=== PATIENT | female | born 1955 | race Caucasian/White ===

== ENCOUNTER 2022-05-13 12:30 | Outpatient (RCR) | payer MEDICARE, MEDICAID, SELFPAY ==
--- NOTE | 2022-02-15 11:59 | PTOPEVAL ---
PHYSICAL THERAPY INITIAL EVALUATION. Thank you for referring Roselia Hendricks to [facility].? The patient is scheduled to be seen for therapy? 2x/week for 4 weeks. Please review, sign, date and return this plan of care DEVIN. I agree with and certify that the following plan of care is medically necessary. Referring Physician Date Attending Provider: Marija Brito, CORRUGATOR HELPER *PT Outpatient Evaluation Start: 02/15/22 Evaluation Information Diagnosis Gait abnormalities Onset chronic Subjective Information Pt reports she cannot hardly Query Text:As Reported By Patient/ stand, sit, or walk. She Family reports arthritis in both knees, both ankles, both hands , and in her low back. She reports most of her issues are in both knees and sciatic pain when walking. She reports she can sit for 30 mins, she can stand for 15 mins. She reports balance issues stating she has no balance in my legs , she states her bad balance causes her legs to shake. Pt reports no falls in the last 6 months. She reports she sits in a chair and swings her legs for exercise. Prior Level of Function Home Type House Environmental Barriers Ramp Living Situation With Friend Pain Assessment Self Report Pain Assessment Lower Back Reported Pain Level 2 Pain Radiation Right Leg Lowest Pain Intensity 0 Greatest Pain Intensity 7 Lower Extremity Range of Motion General Lower Extremity Range of Motion WFL/Left,WFL/Right Lower Extremity Muscle Strength Testing Gross Lower Extremity Strength susana hip flexion 4-/5 susana knee flexion/extension 4-/5 susana hip abduction 2/5 - unable to hold test position pt able to perform 1 glute bridge unable to perform a double leg heel raise increase muscle shaking with increased fatigue Muscle Length Testing Piriformis w/Hip Flexion >90 Degrees (L) Moderate Tightness,(R) Severe Tightness Left Hamstring Length -60 Right Hamstring Length -60 Posture Standing Position Knee Posture (L) Genu Varus,(R) Genu Varus Palpation Assessment Palpation
--- NOTE | 2022-02-15 12:00 | OTOPEVAL ---
OCCUPATIONAL THERAPY INITIAL EVALUATION REPORT 02/15/22 Thank you for referring Roselia Hendricks to [facility].? The patient is scheduled to be seen for therapy? 2x/week for 3 weeks. Please review, sign, date and return this plan of care DEVIN. I agree with and certify that the following plan of care is medically necessary. Referring Physician Date Referring Provider: Marija Brito, CLAMMER *OT Outpatient Evaluation Start: 02/15/22 10:44 Therapy Assessment Status Assessment Status Assessment Status Evaluation Outpatient Past Medical History Past Medical History Source of Past Medical History Patient Neurological History Hx Other Neurological Disorders Yes: polyneuropathy Cardiovascular History Hx Cardiac Disorders No Significant History Respiratory History Hx Respiratory Disorders No Significant History Musculoskeletal History Hx Arthritis Yes: back, hips, knees, hands Hx Fractures Yes: R wrist Hx Orthopedic Surgery Yes: achilles repair, bunion removal Evaluation Information Problem Diagnosis Polyneuropathy Subjective Information Patient reports neuropathy and Query Text:As Reported By Patient/ 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 She Family states her hands lock up with her fingers crossed and it's very painful. States she has difficulties with washing dishes, writing, and coloring. She also reports that she has carpal tunnel syndrome bilaterally. States she had a nerve conduction study of her UEs 10-12 years ago. Prior Level of Function Activity Level (Last 3 Months) Hand Dominance Right Activity of Daily Living Ability Independent Cooking Yes Cleaning Yes Laundry No Shopping Yes Driving No Home Setting Home Type House Environmental Barriers Ramp Living Situation With Friend Mobility Assistive Devices (Used Last 3 Cane, Large Based Quad Months) Bathroom Environment Tub/Shower, Curtain Bathing Equipment Grab Bars,Tub Seat With Back Comments Additional Prior Level of Function pt. lives with a roommate. She Comments is independent with ADLs, light meal prep, light cleaning, and she goes grocery shopping with her roommate. Roommate does the laundry. She does not drive
--- NOTE | 2022-03-10 11:50 | OTOPDC ---
Evaluation Information Assessment Status Discharge Diagnosis Polyneuropathy Subjective Information Patient has been working with outpatient hand therapy x3 weeks. She notes progress with functional hand use and less hand pain. She is having less sharp, shooting pains in the palms. She states that she no longer has daily episodes of her hands locking up - she states this hasn't happened in weeks. 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 Reported Pain Level Pain Score 2,0: Self Report Additional Pain Score Comments Patient reports having less overall pain in the hands and wrists. She continues to have pain up to 5/10 in the left wrist that she has to stop, shake her hand out, and rest. She states that overall these kinds of pains are less frequent. Assessment OT Clinical Summary Roselia presents today for OT re-evaluation after 5 sessions focused on bilateral hand pain. At this time her pain has reduced and she is no longer having sharp, shooting pains or hand cramping with hand use. She is currently independent with [facility] for ROM and gentle strengthening. No further skilled OT indicated at this time. Plan of Care OT Services Indicated No
--- NOTE | 2022-03-22 12:48 | PTOPPROG ---
Assessment and note entered by Jasmine Quinn, PT, DPT Evaluation Information Assessment Status Progress Diagnosis Gait abnormalities Onset chronic Subjective Information Pt states she feels able to the same as when she started therapy. She states her knees are her biggest limitations. She reports good compliance with her HEP. She reports R sided low back pain this date, and states she still gets thigh cramps. Pt reports 45% improvement in overall symptoms. Assessment PT Clinical Summary Rosemarie presents to therapy today for her progress report following 7 visits of therapy to treat her gait deviations d/t weakness. Today she demonstrates improvements during her 2min walk test, 5xSTS, and TUG but still requires increased time to complete these compared to normative values. Her strength is improving but this progress is slow. Pt is currently limited by her knee and low back pain making exercises difficulty , she also reports being anxious and worries about not doing good with therapy. Continuation of skilled physical therapy services are indicated to continue working on strength, balance, mobility, to manage pain, and to promote unlimited functional mobility. Plan of Care Interventions Gait Training,Manual Therapy,Neuro Re-education, Patient/Caregiver Educati,Therapeutic Activities, Therapeutic Exercise PT Services Indicated Yes Treatment Frequency and 2x/wk for 4 wks Duration These treatments will address the objective and functional deficits as defined above. The patient will be advanced safely and appropriately in order for the patient to progress towards his/her prior level of function. Additional exercises will be introduced and as well as a comprehensive home exercise program upon discharge, if needed, ?to ensure carryover of functional gains achieved in the clinic. This treatment plan has been reviewed and agreement upon by the patient.
--- NOTE | 2022-04-19 16:31 | PTOPPROG ---
Assessment and note entered by Jasmine Quinn, PT, DPT Evaluation Information Assessment Status Progress Diagnosis Gait abnormalities Onset chronic Subjective Information Pt states overall she is improving. She states her legs still shake sometimes when she is standing for a prolonged period of time. Pt states she can stand no longer than 5 minutes prior to needing to sit. Assessment PT Clinical Summary Roselia presents to therapy today for her progress report following 14 visits of skilled therapy. Today she demonstrates slow progress with her strength. She demonstrates intermittent progress with her TUG score, 5xSTS, and 2 min walk distance . She continues to require increased time to complete the standardized tests, placing her at an increased risk for falls. She also continues to demonstrates LE shaking with resistance training. Continuation of skilled therapy services are indicated to improve strength, improve balance, minimize fall risk, and to promote unlimited functional mobility. Plan of Care Interventions Gait Training,Manual Therapy,Neuro Re-education, Patient/Caregiver Educati,Therapeutic Activities, Therapeutic Exercise PT Services Indicated Yes Treatment Frequency and 2x/wk for 4 wks Duration These treatments will address the objective and functional deficits as defined above. The patient will be advanced safely and appropriately in order for the patient to progress towards his/her prior level of function. Additional exercises will be introduced and as well as a comprehensive home exercise program upon discharge, if needed, ?to ensure carryover of functional gains achieved in the clinic. This treatment plan has been reviewed and agreement upon by the patient.
--- NOTE | 2022-05-04 14:20 | PCPTNOTE ---
Patient called & cancelled scheduled appointment this date due to no transportation.
== END 2022-05-16 23:59 | disposition home or self-care (01) ==
LOC: ANHPT 12:30
PROVIDERS: PCP Nurse Practitioner Family; Referring Provider Nurse Practitioner Family; Visit Provider Nurse Practitioner Family
DX: G62.9 Polyneuropathy, unspecified (principal); M62.81 Muscle weakness (generalized); Z74.09 Other reduced mobility
CPT/HCPCS: 97018; 97110; 97112; 97140; 97162; 97165

== ENCOUNTER 2022-05-18 09:56 | Outpatient (RCR) | payer MEDICARE, MEDICAID, SELFPAY ==
--- NOTE | 2022-05-18 16:48 | PTOPDC ---
Assessment and note entered by Carlos Flores, PT Evaluation Information Assessment Status Discharge Diagnosis abnormal gait due to muscle weakness/neuropathy Onset chronic Subjective Information The patient reports she has been dealing with shakiness and spasms in her muscles since a surgery on the L foot 3 years ago where she did not walk or barely walked for 5 months. She reports being consistent doing her exercises at home as much as she can. Reported Pain Level Pain Score 6: Self Report Assessment PT Clinical Summary Roselia has been coming to physical therapy since February 14, 2022. She has made improvements in her TUG score, 2 min walk test, self reports improvement, ERICA hamstring in 90/90, hip strength, and 5 times sit to stand test. She has not met any of her goals besides hamstring length. At this time physical therapist thinks that patient's self reported bone on bone of the knees especially the RLE are causing the patient to plateau and would recommend that the patient see an orthopedic surgeon. She reports she saw one in 1997 and that at the time she didn't need to do it. Physical therapist states that was 24 years ago and there has probably been even worse damage to the knee joints since then. Patient reports she will contact Dr. Ring. Plan of Care PT Services Indicated No Treatment Frequency and discharge Duration
== END 2022-05-19 08:17 | disposition home or self-care (01) ==
LOC: ANHPT 09:56
PROVIDERS: PCP Nurse Practitioner Family; Visit Provider Nurse Practitioner Family
DX: G62.9 Polyneuropathy, unspecified (principal); M62.81 Muscle weakness (generalized); Z74.09 Other reduced mobility
CPT/HCPCS: 97110

== ENCOUNTER 2022-11-12 13:53 | Emergency (ER) | payer MEDICARE, MEDICAID, SELFPAY ==
--- NOTE | ~2022-11-12 | XR_ITS ---
EXAM: XR elbow RT min 3V DATE: 11/12/2022 16:22 HISTORY: elbow pain . COMPARISON: None available. FINDINGS: Positioning limited by pain and the presence of splint material which prevented full elbow flexion. Normal mineralization. No fracture or dislocation. No lytic or blastic lesion. Mild degenera tive change at the elbow joint. Epicondylar enthesopathy. No erosion or periosteal change. Soft tissu es within normal limits. IMPRESSION: No definite fracture or dislocation. Limited lateral view, which can obscure small joint effusions that can accompany occult radial head fractures. Reviewed, dictated and finalized at location K. IMPRESSION: No definite fracture or dislocation. Limited lateral view, which ca n obscure small joint effusions that can accompany occult radial head fractures .
--- NOTE | ~2022-11-12 | XR_ITS ---
XR forearm RT 2V, XR wrist RT min 3V 11/12/2022 14:12 Indication: Status post fall. Right arm pain. Procedure: 2 views right forearm and 3 views right wrist Comparison: No prior studies for comparison. Findings: There is a comminuted distal radial metaphyseal fracture with approximately 3 mm dorsal dis placement. No significant angulation. There is a nondisplaced ulnar styloid fracture. 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 Osteopenia. Impression: 1: Comminuted distal radial metaphyseal fracture with 3 mm dorsal displacement. 2: Nondisplaced ulnar styloid fracture. Reviewed, dictated and finalized at location A. Impression: 1: Comminuted distal radial metaphyseal fracture with 3 mm dorsal displacement. 2: Nondisplaced ulnar styloid fracture. Impression: 1: Comminuted distal radial metaphyseal fracture with 3 mm dorsal displacement. 2: Nondisplaced ulnar styloid fracture.
[2022-11-12 13:55] VITALS: BP 140/72; PULSE 86; RESP 18; TEMP 37.2; O2SAT 100
[2022-11-12 16:12] VITALS: BP 145/84; PULSE 78; RESP 18; O2SAT 100
--- NOTE | 2022-11-12 16:19 | ED.FALL ---
HPI - Fall General Chief Complaint: Fall Stated Complaint: Fall, Right Wrist Pain Time Seen by Provider: 11/12/22 16:01 History of Present Illness HPI Narrative: 67-year-old female presenting to the emergency department for evaluation of right wrist pain after having a ground-level fall. Patient states she was attempting to move a package when she tripped fell backwards and landed on her right wrist. Patient denies striking her head denies any loss of consciousness. Patient reports when she was younger she did have an injury to that same wrist. Patient was complaining of pain in the right wrist and pain in the right elbow. Patient does describe arthritic pain of the lower legs but denies any other acute injuries Related Data Allergies Allergy/AdvReac Type Severity Reaction Status Date / Time lactose Allergy Unknown Nausea and Verified 11/12/22 17:27 Vomiting latex Allergy Unknown Unknown Verified 11/12/22 17:27 poison toño extract Allergy Unknown Rash Verified 11/12/22 17:27 tomato Allergy Unknown Hives Verified 11/12/22 17:27 Review of Systems Review of Systems: All systems reviewed & are unremarkable except as noted in HPI and below PMFSH Family History Family History (Updated 09/26/18 @ 11:18 by DOCTOR UNKNOWN) Other Diabetes mellitus Family history of arthritis Family history of malignant neoplasm of bone Malignant neoplasm of prostate Social History Social History Smoking status: Former smoker Smoking end date: 07/03/72 Alcohol intake: never Exam Narrative: APPEARANCE: Well appearing, no pain, no distress, well-nourished. HEAD: normocephalic, atraumatic. EYES: PERRLA/EOMI, conjunctivae clear. NOSE: Normal no drainage NECK: Supple. No adenopathy, no masses. RESPIRATORY: Airway patent, respirations nonlabored. Clear to auscultation bilaterally, no rales, rhonchi, wheezing. CARDIOVASCULAR: Regular rate and rhythm without murmurs rubs or gallops. ABDOMINAL: Soft, nontender, nondistended, normal bowel sounds MUSCULOSKELETAL: Tenderness to right wrist, neurovascular intact. Tenderness to right elbow NEURO: Alert. Cranial nerves II through XII intact. SKIN: Warm, dry. Normal Color Course Course Emergency Course: 67-year-old female presented to the ED for evaluation of right wrist pain. X-rays did show a comminuted distal radius fracture. X-ray of the elbow showed no significant fracture. Patient was placed in a volar splint and also provided a pouch sling for comfort. Patient was provided follow-up with orthopedics. Patient was neurovascularly intact. No significant deformity requiring reduction in the emergency department. Patient and family were updated on the plan for splinting in the emergency department medications for pain control and the importance having close follow-up with orthopedics as outpatient. Patient and family were also updated on reasons to return to the emergency department. All question concerns were addressed. Vital Signs Vital signs: Vital Signs Temperature 98.9 F 11/12/22 13:55 Pulse Rate 86 11/12/22 13:55 Respiratory Rate 18 11/12/22 13:55 Blood Pressure 140/72 11/12/22 13:55 Pulse Oximetry 100 11/12/22 13:55 Oxygen Delivery Room Air 11/12/22 13:55 Temperature 98.9 F 11/12/22 13:55 Pulse Rate 72 11/12/22 18:01 Respiratory Rate 20 11/12/22 18:01 Blood Pressure 137/77 11/12/22 18:01 Pulse Oximetry 99 11/12/22 18:01 Oxygen Delivery Room Air 11/12/22 13:55 MDM - Fall Differential Diagnosis Differential diagnosis: Likely fracture of wrist Imaging Data Radiologist's impression: Impressions Forearm X-Ray 11/12/22 14:20 Impression: 1: Comminuted distal radial metaphyseal fracture with 3 mm dorsal displacement. 2: Nondisplaced ulnar styloid fracture. Wrist X-Ray 11/12/22 14:20 Impression: 1: Comminuted distal radial metaphyseal fracture with 3 mm dorsal displacement. 2: Nondisplaced ulnar s
[2022-11-12] MEDS: CYCLOBENZAPRINE HCL 10 MG TABLET PO (17:23)
[2022-11-12] MEDS: HYDROcodone/acetaminophen (*CRX) 5-325 MG TABLET 1 TAB PO (17:23)
[2022-11-12 17:25] VITALS: BP 132/75; PULSE 73; RESP 18; O2SAT 100
[2022-11-12 18:01] VITALS: BP 137/77; PULSE 72; RESP 20; O2SAT 99
== END 2022-11-12 18:03 | disposition home or self-care (01) ==
PROVIDERS: Emergency Provider Emergency Medicine; PCP Nurse Practitioner Family
DX: S59.201A Unspecified physeal fracture of lower end of radius, right arm, initial encounter for closed fracture (principal); Z87.891 Personal history of nicotine dependence; W01.0XXA Fall on same level from slipping, tripping and stumbling without subsequent striking against object, initial encounter
CPT/HCPCS: 29125; 73080; 73090; 73110; 99284; A4565; A9270

== ENCOUNTER 2023-03-08 13:00 | Outpatient (RCR) | payer MEDICARE, MEDICAID, SELFPAY ==
--- NOTE | 2023-01-16 11:52 | OTOPEVAL1 ---
Assessment and note entered by CARLOS Pickens/Alicia, CHT Evaluation Information Assessment Status Evaluation Diagnosis Right distal radius and ulna fracture Onset 11/12/22 Subjective Information Patient reports residual swelling, stiffness, and weakness that restricts use of the right hand/UE. She reports difficulties with dressing, feeding herself, and being able to wash her hair. Reported Pain Level Pain Score 0: Self Report Additional Pain Score Comments Patient reports pain increases to 2-3/10 with ROM. Assessment OT Clinical Summary Patient referred to outpatient OT following right distal radius and ulna fracture that occurred about 9 weeks ago. She presents with a decline in right UE use with ADLs due to deficits with stiffness and weakness. Skilled OT indicated to facilitate optimal functional use of the right/ dominant UE. Plan of Care Interventions Therapeutic Exercise,Manual Therapy,Therapeutic Activities,Hot Pack/Cold Pack,Paraffin OT Services Indicated Yes Treatment Frequency and 1x/week for 5 weeks Duration These treatments will address the objective and functional deficits as defined above. The patient will be advanced safely and appropriately in order for the patient to progress towards his/her prior level of function. Additional exercises will be introduced and as well as a comprehensive home exercise program upon discharge, if needed, ?to ensure carryover of functional gains achieved in the clinic. This treatment plan has been reviewed and agreement upon by the patient.
--- NOTE | 2023-01-16 11:52 | OPREHPOC ---
Outpatient Therapy Plan of Care This is a Multidisciplinary Plan of Care that may contain components documented by all disciplines (PT, OT, and ST.) OT Problem 1 OT Problem #1 Knowledge Deficit OT Goal 1 Goal 1. Patient to be independent with instructed materials. Target Visit 6 OT Problem 2 OT Problem #2 Impaired Range of Motion OT Goal 1 Goal Patient to increase active ROM of the right UE: 1. supination to 75 2. wrist flexion to 50 3. wrist extension to 50 4. be able to touch finger tips to the palm
--- NOTE | 2023-02-15 13:26 | OTOPPROG ---
Assessment and note entered by CARLOS Pickens/Alicia, CHT Evaluation Information Diagnosis Right distal radius and ulna fracture Onset 11/12/22 Subjective Information Patient reports she has progressed to using her right hand for dressing without difficulty and is now back to washing her own hair with bilateral hands. She states she is now using her right hand to feed herself, but has difficulties cutting food . She is also using the right hand to open the fridge and pick up man items. Assessment OT Clinical Summary Patient referred to outpatient OT following right distal radius and ulna fracture. She is about 13 weeks post injury. She presents today for therapy re-evaluation and demonstrates excellent progress with ROM and functional strength, which has carried over into patient being able to use the right hand for more ADL tasks. She demonstrates residual stiffness and weakness that limits return of lifting/carrying. Continued skilled OT indicated to facilitate optimal functional use of the right/dominant UE. Plan of Care Interventions Therapeutic Exercise,Manual Therapy,Therapeutic Activities,Hot Pack/Cold Pack,Paraffin OT Services Indicated Yes Treatment Frequency and 1x/week for 3 weeks Duration These treatments will address the objective and functional deficits as defined above. The patient will be advanced safely and appropriately in order for the patient to progress towards his/her prior level of function. Additional exercises will be introduced and as well as a comprehensive home exercise program upon discharge, if needed, ?to ensure carryover of functional gains achieved in the clinic. This treatment plan has been reviewed and agreement upon by the patient.
--- NOTE | 2023-02-15 13:27 | OPREHPOC ---
Outpatient Therapy Plan of Care This is a Multidisciplinary Plan of Care that may contain components documented by all disciplines (PT, OT, and ST.) OT Problem 1 OT Problem #1 Knowledge Deficit OT Goal 1 Goal 1. Patient to be independent with instructed materials. ---OT POC UPDATE 02/15/23-- 1. Met, continue as HEP is progressed Target Visit 8 OT Problem 2 OT Problem #2 Impaired Range of Motion OT Goal 1 Goal Patient to increase active ROM of the right UE: 1. supination to 75 2. wrist flexion to 50 3. wrist extension to 50 4. be able to touch finger tips to the palm ---OT POC UPDATE 02/15/23-- 1. progressing, continue 2. met 3. progressing, continue 4. met Target Visit 8 OT Problem 3 OT Problem #3 Impaired Strength OT Goal 1 Goal ---OT POC UPDATE 02/15/23-- 1. Increase right snow groomer strength to 30 lbs. Target Visit 8
--- NOTE | 2023-03-08 13:34 | OTOPDC ---
Assessment and note entered by CARLOS Pickens/Alicia, CHT Evaluation Information Diagnosis Right distal radius and ulna fracture Onset 11/12/22 Subjective Information Patient reports using her right hand for ADL tasks again, stating she is feeling stronger. She does have some limitations with cutting with a knife. She reports good compliance with her HEP. States she has some pains on the ulnar side of the wrist. She also reports sometimes feeling popping in the wrist. ROM has returned to functional limits. Gross strength of the wrist improved to 4+/5. Talent Agent improved to 24 lbs. Reported Pain Level Pain Score 0: Self Report Additional Pain Score Comments No pain at rest. Assessment OT Clinical Summary Patient referred to outpatient OT following right distal radius and ulna fracture. Her ROM has returned to functional limits. Gross strength of the wrist has returned to functional limits. She continues to have some residual outpatient interviewing clerk strength weakness. She is currently independent with all home exercises. No further skilled OT indicated at this time. Plan of Care OT Services Indicated No
== END 2023-03-08 15:52 | disposition home or self-care (01) ==
LOC: ANHOT 13:00
PROVIDERS: PCP Nurse Practitioner Family; Visit Provider Orthopaedic Surgery
DX: S52.571D Other intraarticular fracture of lower end of right radius, subsequent encounter for closed fracture with routine healing (principal)
CPT/HCPCS: 97018; 97110; 97165

== ENCOUNTER 2024-01-15 12:28 | Outpatient (CLI) | payer MEDICARE, MEDICAID, SELFPAY ==
--- NOTE | ~2024-01-15 | MM_ITS ---
EXAMINATION: MM screening hugh BI w chencho HISTORY: Screening TECHNIQUE: Craniocaudal and mediolateral oblique 3-D tomosynthesis images were obtained and synthetic 2-D images were generated. CAD analysis was submitted and interpreted. COMPARISON: 05/19/2014 BREAST PARENCHYMAL COMPOSITION: Not dense: There are scattered areas of fibroglandular density. FINDINGS: There is no evidence of suspicious mass, calcification, or architectural distortion to sugg est malignancy in either breast. There has been no suspicious interval change. IMPRESSION: 1. No mammographic evidence of malignancy. 2. Recommend routine screening mammography in one year. BI-RADS Category 1: Negative Reviewed, dictated and finalized at location B.
== END 2024-01-15 12:29 ==
PROVIDERS: PCP Nurse Practitioner Family; Visit Provider Nurse Practitioner Family
DX: Z12.31 Encounter for screening mammogram for malignant neoplasm of breast (principal)
CPT/HCPCS: 77063; 77067